=== PATIENT | male | born 1970 | race African-American/Black ===

== ENCOUNTER 2024-10-10 12:35 | Emergency (ER) | payer SELFPAY ==
[~2024-10-10] VITALS: Ht 165.1 cm; Wt 82.6 kg
--- NOTE | 2024-10-10 14:45 | ED.PDOC ---
History of Present Illness HPI Comments 54-year-old male presents here with concern for possible stroke. He states he has had some discomfort to his left leg and has been having a mild headache for the last 2 days and given his previous history of stroke he was concerned he could be having a stroke. He states he has no weakness to the leg just mild discomfort to the foot. Denies any numbness tingling. Denies any slurred speech. Denies any weakness to anyone arm or 1 leg. Patient states the headache has been there for 2 days rates it a 4/10.. But currently his headache is 0/10. Patient is here for reassurance. Denies any recent cough cold runny nose fever or chills. Chief Complaint: Headache Time Seen by MD: 13:58 Mode of Arrival: Ambulatory Past Medical History Past Medical History (Other): Previous stroke and diabetes Surgical History: Denies all surgeries Social History Smoker: Non-Smoker Alcohol: Denies ETOH Use Drugs: Denies Drug Use Lives In: Home All Other Systems: Reviewed and Negative Physical Exam General Appearance: No Apparent Distress, Normal HEENT: Normal ENT Inspection, Pharynx Normal, TMs Normal Neck: Full Range of Motion, Non-Tender, Normal, Normal Inspection Respiratory: Chest Non-Tender, Lungs Clear, No Accessory Muscle Use, No Respiratory Distress, Normal Breath Sounds Cardiovascular: No Edema, No JVD, No Murmur, No Gallop, Normal Peripheral Pulses, Regular Rate/Rhythm Breast Exam: Deferred Gastrointestinal: No Organomegaly, Non Tender, No Pulsatile Mass, Normal Bowel Sounds, Soft Genitalia: Deferred Pelvic: Deferred Rectal: Deferred Extremities: No calf tenderness, Normal capillary refill, Normal inspection, Normal range of motion, Non-tender, No pedal edema Musculoskeletal : Apperance: Normal Neurologic: Alert, methods engineer II-XII nml as Tested, No Motor Deficits, Normal Affect, Normal Mood, No Sensory Deficits, Other (Intact haij-eo-lohs bilaterally, intact rapid alternating movements of the hand) Cerebellar Function: Normal Reflexes: Normal Skin: Dry, Normal Color, Warm Lymphatic: No Adenopathy Was a procedure done? Was a procedure done?: No Differential Dx Considerations may include: Anxiety, TIA, stroke, meningitis, subarachnoid hemorrhage, subdural hematoma, DVT, cellulitis X-Ray, Labs, Meds, VS Vital Signs Date Time Temp Pulse Resp B/P (MAP) Pulse Ox O2 Delivery O2 Flow Rate FiO2 10/10/24 13:08 98.2 84 16 149/74 (99) 98 98.2 54-year-old male here for reassurance. He is concerned he could be having a stroke. At this time he has no stroke-like symptoms. He is well-appearing on my examination. Blood pressure is within acceptable range at this time. At this time I have discharging him home. Low suspicion for emergent pathology. Time of 1ST Reevaluation: 14:42 Reevaluation 1ST: Unchanged Patient Education/Counseling: Diagnosis, Treatment Family Education/Counseling: No Family Present SEPSIS Sepsis Screen Date sepsis recognized/suspect: Oct 10, 2024 Time Sepsis recognized/suspect: 1305 Recent Procedure: No On Antibiotic Therapy: No Respiratory Rate >20: No Heart Rate >90: No Temp<36 C (96.8 F) or >38.3 C: No SBP <90 or MAP <65 mmHG: No New Acute Mental Status Change: No Is the patient on CPAP, BIPAP,: No Vital Signs Date Time Temp Pulse Resp B/P (MAP) Pulse Ox O2 Delivery O2 Flow Rate FiO2 10/10/24 13:08 98.2 84 16 149/74 (99) 98 98.2 Departure 1 Departure Time of Disposition: 14:42 Impression: Primary Impression: Leg pain Additional Impression: Headache Qualified Codes: G44.209 - Tension-type headache, unspecified, not intractable Disposition: 01 HOME / SELF CARE / HOMELESS Condition: Good Additional Instructions: Follow up with the primary care physician in 2-3 days. Return to the ER if symptoms worsen or persist. Discharged With: Self Critical Care Note Critical Care Time?: No Stability Stability form required: No Heart Score Heart Score: Heart Score Response (Comments) Value History N/A 0 EKG N/A 0 Age N/A 0 Risk Factors N/A 0 Troponin N/A 0 Total 0 NEL DE LA ROSA MD Oct 10, 2024 14:45
[2024-10-10 16:31] VITALS: BP 141/83; PULSE 61; RESP 16; TEMP 98; O2SAT 99
== END 2024-10-10 16:33 | disposition home or self-care (01) ==
LOC: ER 12:35
DX: R51.9 Headache, unspecified (principal); M79.606 Pain in leg, unspecified; Z86.73 Personal history of transient ischemic attack (TIA), and cerebral infarction without residual deficits